=== PATIENT | male | born 1935 | race Caucasian/White ===

== ENCOUNTER → 2016-09-18 | Outpatient (CLI) | payer MEDICARE ==
[~2016-09-18] MED LIST: ASPIRIN ENTERI325 M1 PO; ASPIRIN PO; BACTRIM DS TABL1 TA1 PO; BAYER ASPIRIN325 M1 PO; DEXILANT60 MG PO; FLEXERIL PO; FLOMAX0.4 M1 PO; FLOMAX0.4 MG PO; IBUPROFEN600 MG PO; IMDUR-ER30 M1 PO; IMDUR-ER60 MG DOB; KCL PO; KEFLEX PO; LASIX PO; LOPRESSOR PO; LORTAB 10-5001 EACH PO; NEXIUM PO; NITROGLYCERIN0.4 MG SL; NITROGLYGERIN0.4 MG; NITROGYLCERIN SUBLINGUAL; NITROQUICK0.4 MG SL; PHENERGAN25 MG PO; PLAVIX PO; RANEXA1000 MG PO; RANEXA500 MG DOB; RED YEAST RICE600 M1 PO; SINGULAIR PO; TYLOX 5/500 CAP1 CAP PO; VICODIN 5/500 T1 TAB PO; ZESTRIL5 MG PO; ZETIA PO
[2016-09-18 09:44] LABS: BASOPHIL% 0.4 % (0-2.5); EOSINOPHIL# 0.2 X10e3 (0-0.7); EOSINOPHIL% 2.6 % (0.0-7.0); HEMATOCRIT 40.7 % (38.0-50.0); HEMOGLOBIN 14.3 gm/dL (13.0-16.0); LYMPHOCYTE# 1.9 X10e3 (1.0-3.5); LYMPHOCYTE% 27.6 % (17.0-45.0); MEAN CORPUSCULAR HEMOGLOBIN 32.9 PG (28-34); MEAN PLATELET VOLUME 7.8 FL (6.5-11.5); MONOCYTE# 0.5 X10e3 (0-1.0); MONOCYTE% 7.8 % (3.0-12.0); NEUTROPHIL# 4.2 X10e3 (1.5-7.1); NEUTROPHIL% 61.6 % (40-75); PLATELET COUNT 136 X10e3 (140-420); RED BLOOD COUNT 4.33 X10e (3.90-5.60); RED CELL DISTRIBUTION WIDTH 13.9 % (11.0-15.5); WHITE BLOOD COUNT 6.8 X10e3 (4.0-10.5)
[2016-09-18 09:46] LABS: DIFF IND NO
[2016-09-18 10:41] LABS: ALBUMIN SERUM 3.9 g/dL (3.5-5.0); BILIRUBIN,TOTAL 0.7 mg/dL (0.2-2.0); CALCIUM SERUM 8.8 mg/dL (8.4-10.2); CREATININE SERUM 1.2 mg/dL (0.6-1.4); GLOM FILT RATE Estimated 56.8 mL/min (>60); POTASSIUM 4.7 mmol/L (3.5-5.1); PROTEIN TOTAL SERUM 6.1 g/dL (6.0-8.3)
[2016-09-18 10:44] LABS: PROSTATE SPECIFIC AG SCR 0.24 ng/ml (0.0-4.0)
== END | disposition home or self-care (01) ==
LOC: CLAB 09:13
PROVIDERS: Family Medicine
DX: M25.50 Pain in unspecified joint (principal); R25.1 Tremor, unspecified; I25.2 Old myocardial infarction; R35.1 Nocturia
CPT/HCPCS: 36415; 80053; 80061; 85025; 85652; 86430; G0103